=== PATIENT | female | born 1985 | race African-American/Black ===

== ENCOUNTER 2017-09-05 11:06 | Emergency (ER) | payer MEDICAID ==
[~2017-09-05] VITALS: Ht 160 cm; Wt 77.1 kg
--- NOTE | 2017-09-05 11:15 | NUR ---
BILATERAL ARM PAIN S/P LIFTINGH HEAVY OBJECTS ON TUESDAY, NAD NOTED, VSS, RESP EVEN AND UNLABORED, WAITING FOR MD MAYS.
[2017-09-05] MEDS ORDERED: ONDANSETRON HCL/PF 4 MG/2 ML VIAL ONE (11:41)
--- NOTE | 2017-09-05 11:45 | NUR ---
BLOOD SAMPLE COLLECTED, SENT TO LAB
[2017-09-05 11:54] LABS: BASOPHILS % (AUTO) 0.5 % (0.0-2.0); EOSINOPHILS # (AUTO) 0.1 /CMM (0.0-0.7); EOSINOPHILS % (AUTO) 0.9 % (0.0-6.0); HEMATOCRIT 30 % (33-45); HEMOGLOBIN 8.9 g/dL (11.5-14.8); LYMPHOCYTES # (AUTO) 1.7 /CMM (0.8-4.8); LYMPHOCYTES % (AUTO) 17.6 % (20.0-44.0); MEAN CORPUSCULAR HEMOGLOBIN 18 PG (26.0-33.0); MEAN CORPUSCULAR HGB CONC 30 g/dl (31.0-36.0); MEAN CORPUSCULAR VOLUME 60 fL (82-100); MONOCYTES # (AUTO) 0.6 /CMM (0.1-1.30); PLATELET COUNT (AUTO) 337 /CMM (150-450); RDW COEFFICIENT OF VARIATION 17.2 (11.5-15.0); RED BLOOD CELL COUNT(AUTO) 4.94 MIL/uL (4.0-5.2); WHITE BLOOD COUNT (AUTO) 9.4 K/uL (4.3-11.0)
--- NOTE | 2017-09-05 11:59 | NUR ---
DEBI AT BS.
[2017-09-05] MEDS ORDERED: ONDANSETRON HCL/PF 4 MG/2 ML VIAL IV ONE (12:00)
[2017-09-05] MEDS ORDERED: IV NS 0.9% 1,000 ML BAG IV ONE (12:00)
[2017-09-05 12:03] LABS: CARBON DIOXIDE 22 mmol/L (21-32); CHLORIDE 101 mmol/L (98-107); CREATININE 0.8 mg/dL (0.6-1.3); GLUCOSE 107 mg/dL (74-106); POTASSIUM 3.3 mmol/L (3.5-5.1); SODIUM SERUM 133 mmol/L (136-145); UREA NITROGEN, BLOOD 8 mg/dL (7-18)
[2017-09-05 12:09] LABS: INR 0.94 (0.87-1.13)
[2017-09-05 12:11] LABS: TROPONIN I < 0.017 ng/mL (0.00-0.056)
[2017-09-05] MEDS ORDERED: MORPHINE SULFATE INJ 4 MG/ML DISP.SYRIN ONE (12:39)
[2017-09-05] MEDS ORDERED: IV NS 0.9% 250 ML IV ONE (12:53)
[2017-09-05] MEDS ORDERED: IOHEXOL-350 100 ML VIAL IV ONE (12:53)
[2017-09-05] MEDS ORDERED: MORPHINE SULFATE INJ 2 MG/ML DISP.SYRIN IV ONE (13:00)
[2017-09-05 13:19] LABS: NEUTROPHILS % (MANUAL) 69 (42-76)
[2017-09-05 13:20] LABS: BAND % (MANUAL) 3 % (0.0-5.0); EOSINOPHILS % (MANUAL) 1 % (0-4); LYMPHOCYTES % (MANUAL) 21 % (16-48); MONOCYTES % (MANUAL) 6 % (0-11.0)
[2017-09-05 13:21] LABS: BASOPHILS % (MANUAL) 0 % (0.0-2.0)
--- NOTE | 2017-09-05 13:23 | NUR ---
PT BACK FROM CT ANGIO
[2017-09-05] MEDS ORDERED: ACETAMINOPHEN ES 500 MG TABLET PO ONE (14:30)
[2017-09-05] MEDS ORDERED: ACETAMINOPHEN ES 500 MG TABLET ONE (14:35)
[2017-09-05 14:46] VITALS: BP 138/80
--- NOTE | 2017-09-05 14:48 | NUR ---
Patient discharged to home in stable condition. Written and verbal after care instructions given. Patient verbalizes understanding of instruction.IV removed. Catheter intact and site benign. Pressure and 4x4 applied to site. No bleeding noted.
== END 2017-09-05 14:49 | disposition home or self-care (01) ==
LOC: ER 11:07
DX: M54.2 Cervicalgia (principal); D50.9 Iron deficiency anemia, unspecified; R07.9 Chest pain, unspecified; R42 Dizziness and giddiness; R11.2 Nausea with vomiting, unspecified
CPT/HCPCS: 36415; 71045-TC; 80048-TC; 84484-TC; 85025-TC; 85378-TC; 85730-TC; A4606; J2270; J2405; J7030; J7050; Q9967; Z7610

== ENCOUNTER 2017-12-17 09:32 | Emergency (ER) | payer MEDICAID ==
[~2017-12-17] VITALS: Ht 160 cm; Wt 77.1 kg
[2017-12-17 09:32] VITALS: BP 129/74
[2017-12-17] MEDS ORDERED: LORAZEPAM 1 MG TABLET ONE (09:53)
[2017-12-17] MEDS ORDERED: LORAZEPAM 1 MG TABLET PO ONE (10:00)
== END 2017-12-17 10:58 | disposition home or self-care (01) ==
LOC: ER 09:34
DX: F41.9 Anxiety disorder, unspecified (principal); R00.2 Palpitations; R06.02 Shortness of breath; R20.2 Paresthesia of skin
CPT/HCPCS: A4606; Z7610

== ENCOUNTER 2018-04-19 17:46 | Emergency (ER) | payer SELFPAY ==
[~2018-04-19] VITALS: Ht 160 cm; Wt 74.8 kg
--- NOTE | 2018-04-19 17:50 | NUR ---
RECEIVED PATIENT A/OX4 C/O INCREASED SWELLING TO BLE FOR 1 WEEK NO OTHER COMPLAINTS. +CMS BLE. +PULSES. NON PITTING. PATIENT AMBULATORY
--- NOTE | 2018-04-19 18:17 | NUR ---
Patient discharged to home in stable condition. Written and verbal after care instructions given. Patient verbalizes understanding of instruction.
[2018-04-19 18:19] VITALS: BP 128/68
== END 2018-04-19 18:21 | disposition home or self-care (01) ==
LOC: ER 17:49
DX: R60.0 Localized edema (principal); F41.9 Anxiety disorder, unspecified
CPT/HCPCS: A4606; Z7610